=== PATIENT | female | born 1975 | race Caucasian/White ===

== ENCOUNTER 2017-06-25 13:30 | Emergency (ER) | payer OTHER ==
[~2017-06-25] VITALS: Ht 157.5 cm; Wt 63.5 kg
--- NOTE | ~2017-06-25 | CR286 ---
[facility] A Service of [facility] & [facility] / [facility] RADIOLOGY TEXT RESULTS PATIENT: SNEHA PEARCE LOCATION: [facility] : 73 UNIT #: [id number] AGE: [address]: Amada Burnett SEX: F ORDER DR: [id number] [facility] [address] [place], [place] [address] [id number] MR#: [id number] Acc #: [id number] NAME: SNEHA PEARCE. : 1975 SEX: F STUDY DATE/TIME: 06/25/2017 15:02 UNIT: [facility] ROOM: STUDY DESCRIPTION: CR Wrist W Navicular Min 3 Rt Attending Physician: Amada Burnett P.A.-C. Ordering Physician: Amada Burnett P.A.-C. Primary Care Physician: Primary Care Physician No MEDICAL IMAGING REPORT This report is preliminary unless electronic signature is present EXAM Right wrist with navicular view. HISTORY Fall today with pain and trauma to wrist. FINDINGS AP, lateral, oblique, and navicular views of the right wrist were obtained. No fracture is visible. The bones are normal. IMPRESSION Normal right wrist. Dictated by... Med Egan M.D. THIS IS AN ELECTRONICALLY VERIFIED REPORT Med Egan M.D. at 06/26/2017 11:47 AM Otilia TD: 06/25/2017 16:44 JOB #: [id number] MEDICAL IMAGING REPORT Page 1 of 1 COPY
--- NOTE | ~2017-06-25 | CR173 ---
[facility] A Service of [facility] RADIOLOGY TEXT RESULTS PATIENT: SNEHA PEARCE LOCATION: [facility] : 73 UNIT #: [id number] AGE: [address]: Amada Burnett SEX: F ORDER DR: [id number] [facility] [address] [place], [place] [address] [id number] E MR#: [id number] Acc #: [id number] NAME: SNEHA PEARCE. : 1975 SEX: F STUDY DATE/TIME: 06/25/2017 15:07 UNIT: [facility] ROOM: STUDY DESCRIPTION: CR Knee 3 Views Rt Attending Physician: Amada Burnett P.A.-C. Ordering Physician: Amada Burnett P.A.-C. Primary Care Physician: Primary Care Physician No MEDICAL IMAGING REPORT This report is preliminary unless electronic signature is present EXAM Right knee, 3 views. HISTORY 41-year-old female fell hard on knee this morning, knee pain. FINDINGS Three views of the right knee demonstrate no fracture or dislocation. No arthritic or inflammatory change. No joint effusion. Bone mineralization appears normal. IMPRESSION Normal right knee. Dictated by... Liya Keenan M.D. THIS IS AN ELECTRONICALLY VERIFIED REPORT Liya Keenan M.D. at 06/30/2017 6:03 AM Monique TD: 06/25/2017 17:07 JOB #: [id number] MEDICAL IMAGING REPORT Page 1 of 1 COPY
[~2017-06-25 13:30] MED LIST: ALBUTEROL17 GM INH; ALPRAZOLAM PO; AMOXICILLIN; AMOXICILLIN PO; ASPIRIN81 M1 PO; ASPIRIN81 MG PO; AUGMENTIN875 MG PO; BACTRIM DS TABL1 TA1 PO; BENTYL20 MG PO; CIPRO PO; COLACE PO; DESYREL50 M1 PO; DICLOFENAC PO; DICYCLOMINE HCL20 MG PO; DICYCLOMINE PO; DOXYCYCLINE150 MG PO; EAR DROP; FLEXERIL PO; FLEXERIL10 M1 PO; FLEXERIL10 MG PO; GABAPENTIN300 MG PO; GLIPIZIDE10 MG PO; GLUCOPHAGE XR750 MG PO; GLUCOTROL PO; GLUCOTROL10 MG PO; HYDROCODON-ACE1 EAC4 PO; IBUPROFEN PO; IBUPROFEN800 MG PO; INDOMETHACIN50 MG PO; IRRITABLE BOWEL MED; KEFLEX500 MG PO; KETOPROFEN PO; LEVEMIR100 UNITS/ SUBQ; LISINOPRIL10 MG PO; LORTAB 10-5001 EACH PO; LORTAB 10/500 T1 TAB PO; LORTAB 5/500 TA1 TA1 PO; LORTAB 7.5-5001 TAB; LORTAB 7.5-5001 TAB PO; LORTAB 7.51 TAB 7.5/ PO; MED FOR IBS; MEDROL DOSEPAK4 MG PO; MEDROL PO; METFORMIN HCL750 MG PO; METFORMIN PO; MOTRIN600 MG PO; NAPROXEN PO; NEURONTIN PO; ORUDIS75 M1 DOB; ORUDIS75 M1 PO; OXYCODON-ACETA1 EAC1 PO; PEPCID PO; PERCOCET; PERCOCET 5-3251 TAB PO; PHENERGAN DM PO; PHENERGAN PO; PHENERGAN W/CO120 ML PO; PHENERGAN25 M1 PO; PHENERGAN25 MG PO; PRILOSEC20 M1 PO; PRILOSEC40 MG PO; PROZAC PO; PROZAC40 MG PO; PYRIDIUM PO; SIMVASTATIN10 MG PO; SKELAXIN PO; TYLOX 5/500 CAP1 CAP PO; ULTRAM PO; VOLTAREN50 MG PO; VOLTAREN75 MG PO; XANAX2 MG PO; ZOCOR; ZOCOR20 MG PO; ZOCOR5 MG PO
== END 2017-06-25 16:07 | disposition home or self-care (01) ==
LOC: CED 13:30 → CFTX 13:30
DX: S63.521A Sprain of radiocarpal joint of right wrist, initial encounter (principal); S83.91XA Sprain of unspecified site of right knee, initial encounter; I10 Essential (primary) hypertension; E11.9 Type 2 diabetes mellitus without complications; Z79.4 Long term (current) use of insulin; F41.9 Anxiety disorder, unspecified; F17.210 Nicotine dependence, cigarettes, uncomplicated; W01.0XXA Fall on same level from slipping, tripping and stumbling without subsequent striking against object, initial encounter; Y92.89 Other specified places as the place of occurrence of the external cause
CPT/HCPCS: 29125; 73110; 73562; 82947; 96372; 99284; J1885